=== PATIENT | female | born 1970 | race Two or more races ===

== ENCOUNTER 2019-08-12 06:30 | Day surgery (SDC) | payer OTHER | END 2019-08-12 10:50 | disposition home or self-care (01) | LOC: AMB-ENDOS 06:30 → ADM 13:30 | DX: K63.5 Polyp of colon (principal); K57.30 Diverticulosis of large intestine without perforation or abscess without bleeding; K64.1 Second degree hemorrhoids; Z12.11 Encounter for screening for malignant neoplasm of colon ==